=== PATIENT | male | born 1950 | race Caucasian/White ===

== ENCOUNTER 2016-08-22 12:34 | Outpatient (CLI) | payer MEDICARE | END 2016-08-22 12:35 | disposition home or self-care (01) | DX: N20.0 Calculus of kidney (principal) ==

== ENCOUNTER 2016-09-10 13:08 | Outpatient (CLI) | payer MEDICARE | END 2016-09-10 13:09 | disposition short-term general hospital (02) | LOC: EMS 13:08 | PROVIDERS: ATTEND Surgery | DX: R10.32 Left lower quadrant pain (principal) | CPT/HCPCS: A0170; A0425; A0427 ==

== ENCOUNTER 2016-12-21 19:24 | Emergency (ER) | payer MEDICARE ==
[2016-12-21 19:32] VITALS: BP 121/78
[2016-12-21] MEDS ORDERED: BUFFERED LIDOCAINE 10 ML SYRINGE ONE (19:43)
--- NOTE | 2016-12-21 19:47 | ED Physician Documentation ---
PD HPI UPPER EXT INJURY - Stated complaint Stated Complaint: Left POINTER LAC - Chief complaint Chief Complaint: Laceration - History obtained from History obtained from: Patient - History of Present Illness Location: Other (Right-handed gentleman who is up-to-date on tetanus cut the tip of his left index finger just prior to arrival while cutting something with a knife at home.) Review of Systems Constitutional: denies: Fever, Chills GI: reports: Reviewed and negative Skin: reports: Reviewed and negative PD PAST MEDICAL HISTORY - Past Medical History Cardiovascular: High cholesterol, Deep vein thrombosis Endocrine/Autoimmune: HyPOthyroidism : Kidney stones - Past Surgical History Past Surgical History: Yes General: Hiatal hernia repair - Present Medications Home Medications: Ambulatory Orders Medication Instructions Recorded Confirmed Warfarin [Coumadin] 6 mg PO DAILY 08/18/14 06/25/16 Citalopram [CeleXA] 10 mg PO DAILY 10/30/14 12/21/16 Cranberry Conc/Ascorbic Acid 1 each PO DAILY 10/30/14 12/21/16 [Cranberry Plus Vitamin C Sftgl] Ezetimibe/Simvastatin [Vytorin 1 tab PO DAILY 10/30/14 12/21/16 10-40 mg Tablet] Levothyroxine [Synthroid] 50 mcg PO DAILY 10/30/14 12/21/16 Multivit-Min/FA/Lycopen/Lutein 1 each PO DAILY 10/30/14 06/25/16 [Centrum Silver Tablet] Hydrochlorothiazide 25 mg PO DAILY 08/08/15 12/21/16 Tamsulosin HCl [Flomax] 0.4 mg PO DAILY 12/21/16 12/21/16 - Allergies Allergies/Adverse Reactions: Allergies Allergy/AdvReac Type Severity Reaction Status Date / Time morphine AdvReac Nausea Verified 09/20/15 16:49 - Social History Does the pt smoke?: No Smoking Status: Never smoker Does the pt drink ETOH?: No Does the pt have substance abuse?: No - Immunizations Immunizations are current?: Yes PD ED PE NORMAL - Vitals Vital signs reviewed: Yes - General General: Alert and oriented X 3, No acute distress - Extremities Extremities: Other (On the pulp of the left index finger there is a less than 1 cm laceration which is actively bleeding, no tenderness or limited range of motion.) - Neuro Neuro: Alert and oriented X 3, Normal speech - Psych Psych: Normal mood, Normal affect Results - Vitals Vitals: Vital Signs - 24 hr 12/21/16 19:30 Temperature 37.1 C Heart Rate 97 Respiratory 18 Rate Blood Pressure 121/78 O2 Saturation 96 Oxygen O2 Source Room air Procedures - Laceration (location) Left 2nd finger Length in cm: 1 Wound type: Linear Neurovascular status: Sensory intact, Motor intact, Vascular intact Anesthesia: Lidocaine 1%, With bicarb (digital block with excellent anesthesia) Wound Preparation: Chlorhexadine, Irrigated copiously NS Skin layer closure: Nylon, Interrupted, Size #-0 - enter number (4-0), Sutures - enter # (3) Other: Tetanus UTD Complexity: Simple Departure - Departure Disposition: 01 Home, Self Care Clinical Impression: Laceration Condition: Good Record reviewed to determine appropriate education?: Yes Instructions: ED Laceration Hand Comments: Come back for any signs of infection which would include: Redness, swelling, drainage, increased pain, or fevers. Follow-up with your physician in 10-14 days for suture removal.
== END 2016-12-21 20:18 | disposition home or self-care (01) ==
LOC: ED 19:24
DX: S61.211A Laceration without foreign body of left index finger without damage to nail, initial encounter (principal); W26.0XXA Contact with knife, initial encounter; Y92.019 Unspecified place in single-family (private) house as the place of occurrence of the external cause; E78.00 Pure hypercholesterolemia, unspecified; E03.9 Hypothyroidism, unspecified; Z86.718 Personal history of other venous thrombosis and embolism; Z79.01 Long term (current) use of anticoagulants
CPT/HCPCS: 12001; 99282; 99283

== ENCOUNTER 2017-01-15 06:33 | Outpatient (CLI) | payer MEDICARE | END 2017-01-15 06:34 | disposition critical access hospital (66) | LOC: EMS 06:33 | PROVIDERS: ATTEND Surgery | DX: R10.9 Unspecified abdominal pain (principal); R39.89 Other symptoms and signs involving the genitourinary system; R11.2 Nausea with vomiting, unspecified | CPT/HCPCS: A0425; A0427 ==

== ENCOUNTER 2017-01-15 06:56 | Emergency (ER) | payer MEDICARE ==
[2017-01-15] MEDS ORDERED: ONDANSETRON 4 MG/2 ML VIAL IVP STA ×2 (07:20→08:35)
[2017-01-15] MEDS ORDERED: SODIUM CHLORIDE 0.9% 1,000 ML IV ONE ×2 (07:20→08:35)
[2017-01-15] MEDS ORDERED: KETOROLAC 60 MG/2 ML VIAL IVP STA (07:20)
[2017-01-15] MEDS ORDERED: HYDROmorphone 1 MG/ML SYRINGE IVP STA ×2 (07:20→08:35)
--- NOTE | 2017-01-15 07:35 | ED Physician Documentation ---
PD HPI ABD PAIN - Stated complaint Stated Complaint: KIDNEY STONE - Chief complaint Chief Complaint: Abd Pain - History obtained from History obtained from: Patient, EMS - History of Present Illness Timing - onset: How many hours ago (4) Timing - details: Still present Pain level max: 9 Pain level now: 3 Quality: Pain Location: LLQ Radiation: Left flank Associated symptoms: Vomiting, Dysuria. No: Fever Similar symptoms before: Diagnosis (Long history of kidney stones.) Recently seen: Surgery (11 days S/P lazer therapy for kidney stone, with ureteral stent placement. Stent was removed yesterday.) - Treatment prior to arrival Treatment prior to arrival: Medics administered Fentanyl officer captain. - Additional information Additional information: The patient is a 66-year-old male with a long history of kidney stones, who arrives via ambulance with left flank pain radiating to his left testicle. His pain this time started about 4 hours prior to arrival. He has had associated vomiting. He denies fever. He does report discomfort with urination, which he thinks is related to undergoing removal of ureteral stent yesterday. He underwent urologic procedure 11 days ago, with laser therapy for a left ureteral stone. A stent was placed at that time, and it was removed yesterday. Medics administered fentanyl, and the patient's pain at the time of arrival in the emergency department is rated at about a 2 out of 10 in severity, much improved. Past medical history is significant for left lower extremity DVT, for which he takes Coumadin. Review of Systems Constitutional: denies: Fever Nose: denies: Congestion Cardiac: denies: Chest pain / pressure Respiratory: denies: Dyspnea, Cough GI: reports: Abdominal Pain, Nausea, Vomiting. denies: Diarrhea : reports: Dysuria. denies: Hematuria Skin: denies: Rash Musculoskeletal: reports: Back pain (left flank pain) Neurologic: denies: Focal weakness, Numbness, Headache PD PAST MEDICAL HISTORY - Past Medical History Cardiovascular: High cholesterol, Deep vein thrombosis Endocrine/Autoimmune: HyPOthyroidism : Kidney stones - Past Surgical History Past Surgical History: Yes General: Hiatal hernia repair - Present Medications Home Medications: Ambulatory Orders Medication Instructions Recorded Confirmed Warfarin [Coumadin] 6 mg PO DAILY 08/18/14 06/25/16 Citalopram [CeleXA] 10 mg PO DAILY 10/30/14 12/21/16 Cranberry Conc/Ascorbic Acid 1 each PO DAILY 10/30/14 12/21/16 [Cranberry Plus Vitamin C [facility]] Ezetimibe/Simvastatin [Vytorin 1 tab PO DAILY 10/30/14 12/21/16 10-40 mg Tablet] Levothyroxine [Synthroid] 50 mcg PO DAILY 10/30/14 12/21/16 Multivit-Min/FA/Lycopen/Lutein 1 each PO DAILY 10/30/14 06/25/16 [Centrum Silver Tablet] Hydrochlorothiazide 25 mg PO DAILY 08/08/15 12/21/16 Tamsulosin HCl [Flomax] 0.4 mg PO DAILY 12/21/16 12/21/16 - Allergies Allergies/Adverse Reactions: Allergies Allergy/AdvReac Type Severity Reaction Status Date / Time morphine AdvReac Nausea Verified 01/15/17 07:21 - Social History Does the pt smoke?: No Smoking Status: Never smoker Does the pt drink ETOH?: No Does the pt have substance abuse?: No - Immunizations Immunizations are current?: Yes PD ED PE NORMAL - Vitals Vital signs reviewed: Yes (normal) - General General: Alert and oriented X 3, Well developed/nourished - HEENT HEENT: Atraumatic - Neck Neck: No adenopathy, No JVD - Cardiac Cardiac: RRR, No murmur - Respiratory Respiratory: No respiratory distress, Clear bilaterally - Abdomen Abdomen: Normal bowel sounds, Soft, No organomegaly, Other (Tenderness to palpation in LLQ, without rebound or guarding.) - Back Back: Other (Left CVA tenderness to percussion.) - Derm Derm: No rash - Neuro Neuro: Alert and oriented X 3, No motor deficit, Normal speech Results - Vitals Vitals: Vital Signs - 24 hr 01/15/17 07:00 Temperature 36.2 C L Heart Rate 82 Respiratory 19 Rate Blood Pressure 109/71 O2 Saturation 99 Oxygen O2 Source Room air - Labs Labs: Laboratory Tests 01/15/17 01/15/17 07:33 07:34 PT 13.5 H INR 1.2 Urine Color YELLOW Urine Clarity CLEAR Urine pH 5.5 Ur Specific [place] >=1.030 H Urine Protein TRACE Urine Glucose (UA) NEGATIVE Urine Ketones NEGATIVE Urine Occult Blood SMALL H Urine Nitrite NEGATIVE Urine Bilirubin NEGATIVE Urine Urobilinogen 0.2 (NORMAL) Ur Leukocyte Esterase NEGATIVE Urine RBC 11-25 H Urine WBC 4-5 Ur Squamous Epith Cells RARE Squamous Urine Crystals 3-5 Calcium Oxalate Urine Bacteria None Seen Urine Mucus Moderate Strands Ur Microscopic Review INDICATED Urine Culture Comments NOT INDICATED - Rads (name of study) CT abd/pelvis w/o Radiology: Prelim report reviewed, EMP read contemporaneously, See rad report ( 1. 2 benign right-sided pulmonary nodules. 2. Bilateral nephrolithiasis. 3. Moderate left hydronephrosis. There is no obvious obstructing stone, but the patient may have recently passed multiple stones into the bladder.) PD MEDICAL DECISION MAKING - ED course Complexity details: reviewed old records, reviewed results, re-evaluated patient , considered differential, d/w patient ED course: The patient's presentation is most consistent with left renal colic, with recent ureteral stent removal yesterday. CT scan of the abdomen and pelvis reveals no current ureteral stone, but there is evidence of recent passage of ureteral stone. There is no evidence of pyelonephritis. Treatment in the emergency department included administration of normal saline 2 L IV, ketorolac 30 mg IV, Dilaudid 1 mg IV, and Zofran 4 mg IV. The patient's symptoms resolved with the above treatment. I discussed with him the expected course of symptoms, symptomatic treatment and outpatient follow-up, as well as potentially worrisome signs or symptoms that should prompt reevaluation in the emergency department. He already has pain medication, antinausea medication, and Flomax that was previously prescribed by his urologist. Departure - Departure Disposition: 01 Home, Self Care Clinical Impression: Renal colic on left side Instructions: ED Stone Renal W Colic Follow-Up: Kd Todd CM, MD [Physician No Access] - Comments: Drink plenty of fluids. Usual previously prescribed pain medication and antinausea medication as needed. Follow up with your urologist as planned. Return to the emergency department if you develop increasing abdominal pain, persistent vomiting, fever, or otherwise worsening symptoms.
[2017-01-15] MEDS ORDERED: KETOROLAC 30 MG/ML VIAL ONE (07:40)
[2017-01-15] MEDS ORDERED: SODIUM CHLORIDE FLUSH 0.9% 10 ML SYRINGE IVP ONE (07:40)
[2017-01-15 07:46] LABS: INR 1.2 (0.8-1.2); PT - PROTHROMBIN TIME 13.5 secs (9.9-12.6)
[2017-01-15 08:03] LABS: BILIRUBIN,URINE NEGATIVE (NEGATIVE); PH,URINE 5.5 PH (5.0-7.5)
[2017-01-15 08:15] LABS: UA w/ MICROSCOPIC CHARGE YES; UR CULTURE IF IND NOT INDICATED
[2017-01-15] MEDS ORDERED: HYDROmorphone 1 MG/ML SYRINGE ONE (08:41)
[2017-01-15] MEDS ORDERED: ONDANSETRON 4 MG/2 ML VIAL ONE (08:41)
--- NOTE | 2017-01-15 09:10 | CT Preliminary Report ---
Exam: CT Abdomen/Pelvis W/O IMPRESSION: 1. 2 benign right sided pulmonary nodules. 2. Bilateral nephrolithiasis. 3. Moderate left hydronephrosis. There is no obvious obstructing stone, but the patient may have rece ntly passed multiple stones into the bladder. [facility] SITE ID: [id number]
--- NOTE | 2017-01-15 09:13 | CT Report ---
EXAM: CT ABDOMEN AND PELVIS (CT KUB) EXAM DATE: 01/15/2017 08:40 AM. CLINICAL HISTORY: Acute left flank pain. COMPARISONS: 09/20/2015, 05/18/2013. TECHNIQUE: Routine axial helical CT imaging was performed through the abdomen and pelvis without IV c ontrast. Reconstructions: Coronal and sagittal. In accordance with CT protocol optimization, one or more of the following dose reduction techniques w ere utilized for this exam: automated exposure control, adjustment of mA and/or KV based on patient s ize, or use of iterative reconstructive technique. FINDINGS: Lung Bases: There are 2 pulmonary nodules in the right lower middle lobe (series 3, images 2 and 3. The largest measures 6 mm. These have been stable since 05/18/2013 and are thus benign. Right Kidney/Ureter: The patient is a nonobstructive 1.0 x 0.2 cm calcification in the right kidney. Left Kidney/Ureter: Moderate left hydronephrosis is present. There are 3 nonobstructive calcification s within the left kidney with the largest measuring 6 mm. Stranding is seen around the left kidney an d ureter. Other Solid Organs: Noncontrast images of the solid organs are grossly unremarkable. Gallbladder/Bile Ducts: The patient has had a cholecystectomy. Peritoneal Cavity: No free fluid, free air or yessy adenopathy. Bowel is grossly unremarkable. Pelvic Organs: The patient has a confluence of stones in the right posterior bladder which measure to gether 1.4 x 0.6 cm. Presumably these are not obstructing the right ureterovesicular junction as ther e is no right hydronephrosis. Vasculature: Arterial calcifications indicate atherosclerosis. Other: There is degenerative change in the visualized spine. IMPRESSION: 1. 2 benign right sided pulmonary nodules. 2. Bilateral nephrolithiasis. 3. Moderate left hydronephrosis. There is no obvious obstructing stone, but the patient may have rece ntly passed multiple stones into the bladder. [facility] Referring Provider Line: [phone] SITE ID: [id number]
[2017-01-15 09:59] VITALS: BP 108/68
== END 2017-01-15 09:59 | disposition home or self-care (01) ==
LOC: EDUNIT# → ED 06:56
DX: N23 Unspecified renal colic (principal); Z87.442 Personal history of urinary calculi; R91.8 Other nonspecific abnormal finding of lung field; Z98.890 Other specified postprocedural states; E78.00 Pure hypercholesterolemia, unspecified; Z86.718 Personal history of other venous thrombosis and embolism; Z79.01 Long term (current) use of anticoagulants; E03.9 Hypothyroidism, unspecified
CPT/HCPCS: 36415; 74176; 81001; 85610; 96361; 96374; 96375; 99284; J1170; 81003; 87086

== ENCOUNTER 2017-07-06 14:34 | Outpatient (CLI) | payer MEDICARE ==
--- NOTE | 2017-07-07 09:52 | XRAY Report ---
ABDOMEN X-RAY: 07/06/2017 COMPARISON: Comparison study abdomen and pelvis CT 01/15/2017. INDICATION: Bladder stone. TECHNIQUE: One view of the abdomen. FINDINGS: Several calcifications overlie the bladder with the largest measuring 1.0 cm, likely bladder stones. There are several bilateral lower pole renal stones that measure on the order of 4 mm. Nonobstructive bowel gas pattern. IMPRESSION: 1. BILATERAL RENAL STONES. 2. LIKELY BLADDER STONES MEASURE UP TO 1.0 CM. TD: 07/07/2017 09:51 [facility]
== END 2017-07-06 14:35 | disposition home or self-care (01) ==
LOC: DI 14:34
PROVIDERS: ATTEND Urology
DX: N21.0 Calculus in bladder (principal); N20.0 Calculus of kidney
CPT/HCPCS: 74018

== ENCOUNTER 2017-08-20 17:52 | Outpatient (CLI) | payer MEDICARE | END 2017-08-20 17:53 | disposition critical access hospital (66) | LOC: EMS 17:52 | PROVIDERS: ATTEND Surgery | DX: R10.30 Lower abdominal pain, unspecified (principal) | CPT/HCPCS: A0425; A0427 ==

== ENCOUNTER 2017-08-20 18:17 | Emergency (ER) | payer MEDICARE ==
[2017-08-20 19:11] LABS: BASOPHILS # (AUTO) 0.1 10^3/uL (0.0-0.1); BASOPHILS % (AUTO) 0.7 %; EOSINOPHILS % (AUTO) 0.2 %; HGB - HEMOGLOBIN 14.6 g/dL (14.0-18.0); LYMPHOCYTES # (AUTO) 0.9 10^3/uL (1.5-3.5); LYMPHOCYTES % (AUTO) 9.4 %; MEAN CORPUSCULAR HEMOGLOBIN 29.9 pg (27.0-31.0); MEAN CORPUSCULAR HGB CONC 33.9 g/dL (32.0-36.0); MEAN PLATELET VOLUME 8.2 fL (7.4-11.4); MONOCYTES # (AUTO) 0.3 10^3/uL (0.0-1.0); MONOCYTES % (AUTO) 2.7 %; NEUTROPHILS # (AUTO) 8.3 10^3/uL (1.5-6.6); PLT - PLATELET COUNT 147 10^3/uL (130-450); RED CELL DISTRIBUTION WIDTH 14.7 % (12.0-15.0); WHITE BLOOD COUNT 9.6 x10^3/uL (4.8-10.8)
[2017-08-20] MEDS ORDERED: SODIUM CHLORIDE 0.9% 1,000 ML IV ONE (19:12)
[2017-08-20] MEDS ORDERED: HYDROmorphone 2 MG/ML VIAL IM STA ×2 (19:12→21:11)
[2017-08-20] MEDS ORDERED: ONDANSETRON 4 MG/2 ML VIAL IVP STA (19:12)
[2017-08-20] MEDS ORDERED: KETOROLAC 60 MG/2 ML VIAL IVP STA (19:13)
--- NOTE | 2017-08-20 19:16 | ED Physician Documentation ---
PD HPI ABD PAIN - Stated complaint Stated Complaint: ABD PAIN - Chief complaint Chief Complaint: Abd Pain - History obtained from History obtained from: Patient - History of Present Illness Timing - onset: Today (This is a 67-year-old gentleman with history of renal and bladder stones who presents with sudden onset severe suprapubic pain radiating to the left flank starting earlier today with vomiting. His urologist is Dr. Todd in [place]. He is anticoagulated for factor V Leiden deficiency.) Review of Systems Ten Systems: 10 systems reviewed and negative Constitutional: reports: Sweats. denies: Fever, Chills Throat: denies: Dental pain / toothache, Sore throat Cardiac: denies: Chest pain / pressure, Palpitations Respiratory: denies: Dyspnea, Cough PD PAST MEDICAL HISTORY - Past Medical History Past Medical History: Yes Cardiovascular: High cholesterol, Deep vein thrombosis Respiratory: None Endocrine/Autoimmune: HyPOthyroidism : Kidney stones Derm: None - Past Surgical History Past Surgical History: Yes General: Hiatal hernia repair - Present Medications Home Medications: Ambulatory Orders Medication Instructions Recorded Confirmed Citalopram [CeleXA] 10 mg PO DAILY 10/30/14 06/03/17 Cranberry Conc/Ascorbic Acid 1 each PO DAILY 10/30/14 06/03/17 [Cranberry Plus Vitamin C [facility]] Multivit-Min/FA/Lycopen/Lutein 1 each PO DAILY 10/30/14 06/03/17 [Centrum Silver Tablet] Hydrochlorothiazide 25 mg PO DAILY 08/08/15 06/03/17 Tamsulosin HCl [Flomax] 0.4 mg PO DAILY 12/21/16 06/03/17 Atorvastatin [Lipitor] 40 mg ORAL DAILY 02/04/17 06/03/17 Cholecalciferol [Vitamin D3] 5,000 unit PO DAILY 02/04/17 06/03/17 Levothyroxine [Synthroid] 1 tab ORAL DAILY 02/04/17 06/03/17 Warfarin Sodium [Coumadin] 8 mg PO DAILY 02/19/17 06/03/17 Ondansetron HCl [Zofran] 4 mg PO Q6H PRN #10 tablet 08/20/17 Oxycodone HCl/Acetaminophen 1 - 2 tab PO Q4H PRN #15 tablet 08/20/17 [Percocet 5-325 mg Tablet] - Allergies Allergies/Adverse Reactions: Allergies Allergy/AdvReac Type Severity Reaction Status Date / Time morphine AdvReac Nausea Verified 01/15/17 07:21 - Social History Does the pt smoke?: No Smoking Status: Never smoker Does the pt drink ETOH?: No Does the pt have substance abuse?: No - Immunizations Immunizations are current?: Yes - POLST Patient has POLST: No PD ED PE NORMAL - Vitals Vital signs reviewed: Yes - General General: Alert and oriented X 3, Other (He looks uncomfortable and is restless) - HEENT HEENT: PERRL, EOMI - Neck Neck: Supple, no meningeal sign, No bony TTP - Cardiac Cardiac: RRR, No murmur - Respiratory Respiratory: No respiratory distress, Clear bilaterally - Abdomen Abdomen: Normal bowel sounds, Soft, Non tender - Back Back: No CVA TTP - Extremities Extremities: No edema, No calf tenderness / cord - Neuro Neuro: Alert and oriented X 3, Normal speech - Psych Psych: Normal mood, Normal affect Results - Vitals Vitals: Vital Signs - 24 hr 08/20/17 08/20/17 08/20/17 18:22 19:50 20:25 Temperature Heart Rate 70 66 83 Respiratory 18 22 22 Rate Blood Pressure 130/111 H 149/97 H 134/76 H O2 Saturation 98 95 95 08/20/17 08/20/17 21:03 21:36 Temperature 37.3 C Heart Rate 90 Respiratory 19 Rate Blood Pressure 143/87 H O2 Saturation 97 Oxygen O2 Source Nasal cannula Oxygen Flow Rate 2 - Labs Labs: Laboratory Tests 08/20/17 08/20/17 08/20/17 19:03 19:03 19:03 WBC 9.6 RBC 4.90 Hgb 14.6 Hct 43.1 MCV 88.0 MCH 29.9 MCHC 33.9 RDW 14.7 Plt Count 147 MPV 8.2 Neut # 8.3 H Lymph # 0.9 L [place] # 0.3 Eos # 0.0 Baso # 0.1 Absolute Nucleated RBC 0.01 Nucleated RBC % 0.1 PT 28.6 H INR 2.6 H Sodium 136 Potassium 4.0 Chloride 104 Carbon Dioxide 23 Anion Gap 9.0 BUN 16 Creatinine 1.2 Estimated GFR (MDRD) 60 L Glucose 131 H Calcium 9.0 Total Bilirubin 0.5 AST 30 ALT 44 Alkaline Phosphatase 100 Total Protein 7.3 Albumin 4.3 Globulin 3.0 Albumin/Globulin Ratio 1.4 Lipase 21 L Urine Color Urine Clarity Urine pH Ur Specific [place] Urine Protein Urine Glucose (UA) Urine Ketones Urine Occult Blood Urine Nitrite Urine Bilirubin Urine Urobilinogen Ur Leukocyte Esterase Urine RBC Urine WBC Ur Squamous Epith Cells Urine Crystals Urine Bacteria Ur Microscopic Review Urine Culture Comments 08/20/17 19:22 WBC RBC Hgb Hct MCV MCH MCHC RDW Plt Count MPV Neut # Lymph # [place] # Eos # Baso # Absolute Nucleated RBC Nucleated RBC % PT INR Sodium Potassium Chloride Carbon Dioxide Anion Gap BUN Creatinine Estimated GFR (MDRD) Glucose Calcium Total Bilirubin AST ALT Alkaline Phosphatase Total Protein Albumin Globulin Albumin/Globulin Ratio Lipase Urine Color YELLOW Urine Clarity CLEAR Urine pH 6.0 Ur Specific [place] 1.025 Urine Protein TRACE Urine Glucose (UA) NEGATIVE Urine Ketones 15 H Urine Occult Blood LARGE H Urine Nitrite NEGATIVE Urine Bilirubin NEGATIVE Urine Urobilinogen 0.2 (NORMAL) Ur Leukocyte Esterase NEGATIVE Urine RBC 11-25 H Urine WBC 0-3 Ur Squamous Epith Cells FEW Squamous Urine Crystals 3-5 Calcium Oxalate Urine Bacteria None Seen Ur Microscopic Review INDICATED Urine Culture Comments NOT INDICATED PD MEDICAL DECISION MAKING - ED course ED course: 67-year-old gentleman chronically anticoagulated presents with what seems like renal colic and is found to have a large proximal ureteral stone with hydronephrosis on the left. Case discussed by phone with Dr. Duane Palumbo, operations architect for his urologist in [place] who recommended no changes to his anticoagulation status at this point a trial of outpatient management. After divided doses of pain medication his pain was down significantly and he was comfortable. Passed an oral challenge. Departure - Departure Disposition: 01 Home, Self Care Clinical Impression: Renal colic on left side, Adequate anticoagulation on anticoagulant therapy Condition: Stable Record reviewed to determine appropriate education?: Yes Instructions: ED Stone Renal W Colic Prescriptions: Ondansetron HCl [Zofran] 4 mg PO Q6H PRN #10 tablet PRN Reason: Nausea / Vomiting Oxycodone HCl/Acetaminophen [Percocet 5-325 mg Tablet] 1 - 2 tab PO Q4H PRN #15 tablet PRN Reason: Pain Comments: Call your urologist tomorrow to schedule a follow-up appointment and to discuss whether or not you should stop your anticoagulation or substitute with Lovenox in the interim. Return if worsening or if pain is uncontrolled. Do not drink or drive while taking narcotic pain medication. Note that many narcotic pain relievers also contain Tylenol/acetaminophen. Please ensure that your total dose of acetaminophen from all sources does not exceed 3 g (3000 mg) per day. You may get constipated while on this medication. Take a stool softener such as Colace twice a day while you are on it. Also add an [id number] laxative such as senna or MiraLAX on any day that you do not have a bowel movement. If you received a narcotic pain medication or sedative while in the emergency department, do not drive for the next 24 hours.
[2017-08-20 19:23] LABS: ALBUMIN 4.3 g/dL (3.2-5.5); ALBUMIN/GLOBULIN RATIO 1.4 (1.0-2.2); BILIRUBIN,TOTAL 0.5 mg/dL (0.2-1.0); CREATININE 1.2 mg/dL (0.6-1.2); TOTAL PROTEIN 7.3 g/dL (6.7-8.2)
[2017-08-20 19:25] LABS: INR 2.6 (0.8-1.2); PT - PROTHROMBIN TIME 28.6 secs (9.9-12.6)
[2017-08-20 19:38] LABS: BILIRUBIN,URINE NEGATIVE (NEGATIVE); GLUCOSE, URINE (UA) NEGATIVE (NEGATIVE); KETONES,URINE (UA) 15 mg/dL (NEGATIVE); LEUKOCYTE ESTERASE, URINE NEGATIVE (NEGATIVE); NITRITE,URINE NEGATIVE (NEGATIVE); OCCULT BLOOD,URINE LARGE (NEGATIVE); PROTEIN,URINE TRACE mg/dL (NEGATIVE); UROBILINOGEN,URINE 0.2 (NORMAL) E.U./dL (NORMAL)
[2017-08-20 19:45] LABS: CLARITY,URINE CLEAR (CLEAR)
[2017-08-20 19:53] LABS: BACTERIA,URINE None Seen /HPF (None Seen); SQUAMOUS EPITHELIAL CELL,UR FEW Squamous (<= Few)
[2017-08-20 19:54] LABS: CRYSTALS,URINE 3-5 Calcium Oxalate /LPF
--- NOTE | 2017-08-20 21:37 | CT Preliminary Report ---
Exam: CT ABDOMEN/PELVIS W/O IMPRESSION: 1. Chronic lung disease. 2. Cholelithiasis. 3. Bilateral nephrolithiasis. 4. 5 mm proximal left ureteral stone causing moderate to marked obstruction. 5. Numerous bladder calculi. 6. Colonic diverticulosis. [facility] SITE ID: [id number]
--- NOTE | 2017-08-20 21:41 | CT Report ---
EXAM: CT ABDOMEN AND PELVIS EXAM DATE: 08/20/2017 08:53 PM. CLINICAL HISTORY: History of kidney stones. Patient presents now with left flank pain, nausea and vom iting. COMPARISONS: 01/15/2017. TECHNIQUE: Routine helical CT imaging was performed through the abdomen and pelvis. IV contrast: None . Enteric contrast: No. Reconstructions: Coronal and sagittal. In accordance with CT protocol optimization, one or more of the following dose reduction techniques w ere utilized for this exam: automated exposure control, adjustment of mA and/or KV based on patient s ize, or use of iterative reconstructive technique. FINDINGS: Lung Bases: Chronic lung disease. Liver: Normal. No masses. Gallbladder/Bile Ducts: No prior surgery. Gallbladder is normal caliber with several 5 mm stones at t he gallbladder neck. No biliary duct dilatation. Spleen: Normal. Pancreas: Normal. Adrenal Glands: Normal. Kidneys: 2 x 10 mm stone inferior right renal calyx. Right kidney and right ureter otherwise normal. Multiple 9 mm and smaller left renal stones. Increasing degree of hydronephrosis now moderate to ambika ed. New marked left perirenal and peripelvic edema. 4 x 5 mm stone proximal left ureter at the level of the L3-L4 disk. Inferior to this stone, left ureter is tiny without additional stones. Peritoneal Cavity/Bowel: Diverticula off the colon. No free fluid, free air or adenopathy. No masses or acute inflammatory process. The appendix is well visualized and normal. Pelvic Organs: Multiple 1 cm and smaller urinary bladder stones; overall, stone load slightly greater than previously. No urinary bladder wall thickening. Prostate measures 4 cm. No free pelvic fluid. Vasculature: No aneurysms or other significant abnormality. Bones: No significant abnormality. Other: None. IMPRESSION: 1. Chronic lung disease. 2. Cholelithiasis. 3. Bilateral nephrolithiasis. 4. 5 mm proximal left ureteral stone causing moderate to marked obstruction. 5. Numerous bladder calculi. 6. Colonic diverticulosis. [facility] Referring Provider Line: [phone] SITE ID: [id number]
[2017-08-20] MEDS ORDERED: oxyCODONE/ACET 5/325 Prepack 4 PO STA (21:53)
[2017-08-20] MEDS ORDERED: ONDANSETRON ODT 4 MG Prepack 2 TL STA (21:56)
[2017-08-20 22:10] VITALS: BP 111/67
== END 2017-08-20 22:11 | disposition home or self-care (01) ==
LOC: EDUNIT# → ED 18:17
DX: N13.2 Hydronephrosis with renal and ureteral calculous obstruction (principal); E03.9 Hypothyroidism, unspecified; E78.00 Pure hypercholesterolemia, unspecified; Z86.718 Personal history of other venous thrombosis and embolism; Z79.01 Long term (current) use of anticoagulants
CPT/HCPCS: 36415; 74176; 80053; 81001; 83690; 85025; 85610; 96361; 96372; 96374; 96375; 99284; J1170; 81003; 87086

== ENCOUNTER 2017-08-28 13:47 | Outpatient (CLI) | payer MEDICARE ==
--- NOTE | 2017-08-28 18:10 | XRAY Report ---
SUPINE ABDOMEN: 08/28/2017 CLINICAL INDICATION: Kidney stone followup. COMPARISON: CT 08/20/2012. FINDINGS: Supine views of the abdomen demonstrate a normal bowel gas pattern. Bilateral nephrolithiasis is stable. Left proximal ureteric stone is stable, at the level of the L3-4 disk. Bladder calculi are stable. Mild degenerative changes are noted in the lumbar spine. IMPRESSION: STABLE NEPHROLITHIASIS, LEFT PROXIMAL URETERIC STONE, AND BLADDER CALCULI. NO BOWEL OBSTRUCTION. TD: 08/28/2017 18:09
== END 2017-08-28 13:48 | disposition home or self-care (01) ==
LOC: DI 13:47
PROVIDERS: ATTEND Urology
DX: N20.2 Calculus of kidney with calculus of ureter (principal); N21.0 Calculus in bladder
CPT/HCPCS: 74018

== ENCOUNTER 2017-10-13 12:10 | Outpatient (CLI) | payer MEDICARE ==
--- NOTE | 2017-10-13 16:00 | XRAY Report ---
Procedure Date: 10/13/2017 Accession Number: [id number] / [id number] Procedure: XR - Abdomen 1 View X-Ray CPT Code: 12745 FULL RESULT: EXAM: Abdomen 1 View X-Ray DATE: 10/13/2017 1:20 PM CLINICAL HISTORY: BLADDER and renal stone follow-up TECHNIQUE: One view COMPARISON: 08/28/2017 FINDINGS: Left renal and ureteral calculi no longer seen. Bladder calculi no longer seen. Question residual right lower pole calculus. Gallstones remain. Nonspecific bowel gas pattern. IMPRESSION: Left renal and ureteral calculi and left bladder calculi no longer seen. Residual gallstones are present. Question residual right nephrolithiasis.
== END 2017-10-13 12:11 | disposition home or self-care (01) ==
LOC: DI 12:10
PROVIDERS: ATTEND Urology
DX: K80.80 Other cholelithiasis without obstruction (principal)
CPT/HCPCS: 74018

== ENCOUNTER 2018-03-25 12:58 | Outpatient (CLI) | payer MEDICARE | END 2018-03-25 12:59 | disposition home or self-care (01) | LOC: RT 12:58 | PROVIDERS: ATTEND Internal Medicine Gastroenterology | DX: E78.5 Hyperlipidemia, unspecified (principal); E66.9 Obesity, unspecified; N20.0 Calculus of kidney; Z12.11 Encounter for screening for malignant neoplasm of colon; D68.51 Activated protein C resistance; F32.9 Major depressive disorder, single episode, unspecified; N40.0 Benign prostatic hyperplasia without lower urinary tract symptoms; F41.9 Anxiety disorder, unspecified; E03.9 Hypothyroidism, unspecified; M75.100 Unspecified rotator cuff tear or rupture of unspecified shoulder, not specified as traumatic; M75.41 Impingement syndrome of right shoulder | CPT/HCPCS: 36415; 80053; 85025; 93005 ==

== ENCOUNTER 2018-04-01 12:40 | Day surgery (SDC) | payer MEDICARE ==
[2018-04-01] MEDS ORDERED: LACTATED RINGERS 1,000 ML IV ONE (13:10)
[2018-04-01] MEDS ORDERED: MIDAZOLAM 2 MG/2 ML VIAL IVP ONE (14:00)
[2018-04-01] MEDS ORDERED: fentaNYL 250 MCG/5 ML VIAL IVP ONE (14:00)
[2018-04-01 16:20] VITALS: BP 125/65
== END 2018-04-01 12:41 | disposition home or self-care (01) ==
LOC: SDS 12:40
PROVIDERS: ATTEND Internal Medicine Gastroenterology
PROC: 0DBN8ZZ Excision of Sigmoid Colon, Via Natural or Artificial Opening Endoscopic (ICD-10-PCS; 2018-04-01)
PROC: 0DBP8ZZ Excision of Rectum, Via Natural or Artificial Opening Endoscopic (ICD-10-PCS; 2018-04-01)
PROC: 0DBM8ZZ Excision of Descending Colon, Via Natural or Artificial Opening Endoscopic (ICD-10-PCS; principal; 2018-04-01 14:00)
DX: Z12.11 Encounter for screening for malignant neoplasm of colon (principal); D12.4 Benign neoplasm of descending colon; D12.8 Benign neoplasm of rectum; K63.5 Polyp of colon; D68.51 Activated protein C resistance; E66.9 Obesity, unspecified; Z79.01 Long term (current) use of anticoagulants; Z87.891 Personal history of nicotine dependence; Z68.32 Body mass index [BMI] 32.0-32.9, adult
CPT/HCPCS: 45380; 45385; 85610; J3010; J7120

== ENCOUNTER 2018-07-22 13:08 | Day surgery (SDC) | payer MEDICARE ==
[2018-07-22] MEDS ORDERED: LACTATED RINGERS 1,000 ML IV ONE ×2 (13:35→14:27)
[2018-07-22 14:12] LABS: INR 2.2 (0.8-1.2)
[2018-07-22 14:19] LABS: PT - PROTHROMBIN TIME 24.5 secs (9.9-12.6)
[2018-07-22 15:58] VITALS: BP 117/69
== END 2018-07-22 13:09 | disposition home or self-care (01) ==
LOC: SDS 13:08
PROVIDERS: ATTEND Internal Medicine Gastroenterology
PROC: 0DBE8ZZ Excision of Large Intestine, Via Natural or Artificial Opening Endoscopic (ICD-10-PCS; 2018-07-22)
PROC: 0DBN8ZZ Excision of Sigmoid Colon, Via Natural or Artificial Opening Endoscopic (ICD-10-PCS; 2018-07-22)
PROC: 0DBK8ZZ Excision of Ascending Colon, Via Natural or Artificial Opening Endoscopic (ICD-10-PCS; principal; 2018-07-22 14:00)
DX: Z09 Encounter for follow-up examination after completed treatment for conditions other than malignant neoplasm (principal); D12.2 Benign neoplasm of ascending colon; K63.5 Polyp of colon; K62.1 Rectal polyp; Z79.01 Long term (current) use of anticoagulants; D68.51 Activated protein C resistance; K21.9 Gastro-esophageal reflux disease without esophagitis; E03.9 Hypothyroidism, unspecified; E78.5 Hyperlipidemia, unspecified; F32.9 Major depressive disorder, single episode, unspecified; F41.9 Anxiety disorder, unspecified; N40.0 Benign prostatic hyperplasia without lower urinary tract symptoms; E55.9 Vitamin D deficiency, unspecified; Z87.442 Personal history of urinary calculi; R91.1 Solitary pulmonary nodule; E66.9 Obesity, unspecified; Z68.33 Body mass index [BMI] 33.0-33.9, adult; Z87.891 Personal history of nicotine dependence
CPT/HCPCS: 45380; 85610; J7120

== ENCOUNTER 2018-08-13 11:29 | Outpatient (CLI) | payer MEDICARE ==
--- NOTE | 2018-08-13 12:41 | XRAY Report ---
Reason: KIDNEY STONE Procedure Date: 08/13/2018 Accession Number: [id number] / [id number] Procedure: XR - Abdomen 1 View X-Ray CPT Code: 73013 FULL RESULT: EXAM: ABDOMEN RADIOGRAPHY EXAM DATE: 08/13/2018 12:13 PM. CLINICAL HISTORY: History of kidney stones. Postop. COMPARISON: 10/13/2017. TECHNIQUE: 1 view. FINDINGS: Bowel Gas Pattern: Bowel gas pattern is normal. Small volume of stool in the colon. Other: Lung bases are clear. Lower pole right renal calculi again evident, the largest measuring up to 3-4 mm. No definitive left renal calculi. No definitive evidence for ureteral or bladder calculi. Right upper quadrant calcifications again seen which may represent gallstones and remain unchanged. IMPRESSION: 1. Nonobstructing right renal calculi. 2. No calculi are seen in the expected position of the left kidney, ureters or bladder. [facility]
== END 2018-08-13 11:30 | disposition home or self-care (01) ==
LOC: LAB 11:29 → DI 11:30
PROVIDERS: ATTEND Urology
DX: N20.0 Calculus of kidney (principal); N40.1 Benign prostatic hyperplasia with lower urinary tract symptoms; N13.8 Other obstructive and reflux uropathy
CPT/HCPCS: 36415; 74018; 84153

== ENCOUNTER 2018-10-26 13:16 | Emergency (ER) | payer MEDICARE ==
[2018-10-26 13:39] VITALS: BP 121/69
[2018-10-26] MEDS ORDERED: DEXAMETHASONE 10 MG/ML VIAL IM STA (14:48)
[2018-10-26] MEDS ORDERED: KETOROLAC 60 MG/2 ML VIAL IM STA ×2 (14:48→14:49)
--- NOTE | 2018-10-26 14:52 | ED Physician Documentation ---
PD HPI BACK PAIN - Stated complaint Stated Complaint: LT HIP AND LEG - Chief complaint Chief Complaint: Back Pain - History obtained from History obtained from: Patient - History of Present Illness Timing - onset: How many days ago (9) Timing - duration: Days (9) Timing - details: Gradual onset Pain level max: 7 Pain level now: 6 Location: Lower, Left Quality: Pain, Spasm Associated symptoms: No: Fever, Weakness, Numbness, Incontinent of urine, Unable to urinate, Hematuria, Incontinent of stool Improves with: Rest Worsened by: Movement Contributing factors: Other (digging outside) Recently seen: Not recently seen - Additional information Additional information: radiates down the L leg. Review of Systems Constitutional: denies: Fever, Chills GI: denies: Vomiting, Diarrhea : denies: Unable to Void, Incontinent Skin: denies: Rash Musculoskeletal: denies: Neck pain Neurologic: denies: Focal weakness, Numbness PD PAST MEDICAL HISTORY - Past Medical History Past Medical History: No Cardiovascular: High cholesterol, Deep vein thrombosis Respiratory: None Neuro: None Endocrine/Autoimmune: HyPOthyroidism GI: None : Kidney stones HEENT: None Psych: None Musculoskeletal: None Derm: None - Past Surgical History Past Surgical History: Yes General: Hiatal hernia repair - Present Medications Home Medications: Ambulatory Orders Medication Instructions Recorded Confirmed Citalopram [CeleXA] 10 mg PO DAILY 10/30/14 09/01/18 Multivit-Min/FA/Lycopen/Lutein 1 each PO DAILY 10/30/14 09/01/18 [Centrum Silver Tablet] Hydrochlorothiazide 25 mg PO DAILY 08/08/15 09/01/18 Tamsulosin HCl [Flomax] 0.4 mg PO DAILY 12/21/16 09/01/18 Atorvastatin [Lipitor] 40 mg ORAL DAILY 02/04/17 09/01/18 Levothyroxine [Synthroid] 1 tab ORAL DAILY 02/04/17 09/01/18 Warfarin Sodium 7 mg PO DAILY MDD 4 X Week, 03/11/18 09/01/18 T//S/S Warfarin Sodium 8 mg PO DAILY MDD 3 X Week, M/W/F 03/11/18 09/01/18 Cyclobenzaprine [Flexeril] 10 mg PO TID PRN #20 tablet 10/26/18 Hydrocodone/Acetaminophen 1 - 2 each PO Q6H PRN #14 tablet 10/26/18 [Hydrocodon-Acetaminophen 5-325] predniSONE [Deltasone] 10 mg PO [id number] #42 tab 10/26/18 - Allergies Allergies/Adverse Reactions: Allergies Allergy/AdvReac Type Severity Reaction Status Date / Time morphine AdvReac Nausea Verified 10/26/18 13:39 - Social History Does the pt smoke?: No Smoking Status: Never smoker Does the pt drink ETOH?: No Does the pt have substance abuse?: No - Immunizations Immunizations are current?: Yes - POLST Patient has POLST: No PD ED PE NORMAL - Vitals Vital signs reviewed: Yes - General General: Alert and oriented X 3, No acute distress, Well developed/nourished - HEENT HEENT: PERRL, Moist mucous membranes - Neck Neck: Supple, no meningeal sign - Cardiac Cardiac: RRR - Respiratory Respiratory: No respiratory distress, Clear bilaterally - Abdomen Abdomen: Soft, Non tender, Non distended - Back Back: Other (No midline tenderness to palpation. Paraspinal tenderness left lower lumbar. Reproduces pain. Mild spasm.) - Derm Derm: Warm and dry - Extremities Extremities: Other (Normal bilateral lower extremity patellar and ankle jerk reflexes. Normal great toe extension bilaterally. no saddle anesthesia) - Neuro Neuro: Alert and oriented X 3, No motor deficit, No sensory deficit Eye Opening: Spontaneous Motor: Obeys Commands Verbal: Oriented GCS Score: 15 - Psych Psych: Normal mood, Normal affect Results - Vitals Vitals: Vital Signs - 24 hr 10/26/18 13:35 Temperature 37.1 C Heart Rate 85 Respiratory 14 Rate Blood Pressure 121/69 O2 Saturation 97 Oxygen O2 Source Room air - Labs Labs: Laboratory Tests 10/26/18 15:00 PT 26.1 H INR 2.4 H PD MEDICAL DECISION MAKING - ED course Complexity details: reviewed results, re-evaluated patient, considered differential (No cauda equina, no spinal epidural abscess, no fracture, no aortic dissection or evidence of aneursym rupture), d/w patient ED course: Patient with what appears to be sciatica rating down the left leg. No evidence of cauda equina, epidural abscess or fracture. Well-appearing, no toxic. Ambulating well. Will prescribe pain medication steroids for home. Patient counseled regarding signs and symptoms for which I believe and urgent re- evaluation would be necessary. Patient with good understanding of and agreement to plan and is comfortable going home at this time This document was made in part using voice recognition software. While efforts are made to proofread this document, sound alike and grammatical errors may occur. Departure - Departure Disposition: 01 Home, Self Care Clinical Impression: Sciatica Qualifiers: Laterality: left Qualified Code(s): M54.32 - Sciatica, left side Condition: Good Instructions: ED Sciatica Follow-Up: Manuel Mcdaniel MD [Primary Care Provider] - Within 1 week Prescriptions: Cyclobenzaprine [Flexeril] 10 mg PO TID PRN #20 tablet PRN Reason: Spasms Hydrocodone/Acetaminophen [Hydrocodon-Acetaminophen 5-325] 1 - 2 each PO Q6H PRN #14 tablet PRN Reason: pain predniSONE [Deltasone] 10 mg PO [id number] #42 tab Comments: Return if you worsen. This should improve over the next week. Return especially for worsening pain or fevers. Do not drink alcohol or drive while on narcotic pain medicine. Note that many narcotic pain relievers also contain tylenol/acetaminophen. Please ensure that your total dose of acetaminophen from all sources does not exceed 3 grams (3000mg) per day. You may constipated on this medication, take a stool softener such as "Colace" twice a day while you are on it. Also recommend a [id number] laxative such as senna or MiraLAX any day that you do not have a bowel movement. If you received narcotic pain medication in the emergency department, do not drive or operate machinery for the next 24 hours. Discharge Date/Time: 10/26/18 15:07
[2018-10-26 15:29] LABS: INR 2.4 (0.8-1.2); PT - PROTHROMBIN TIME 26.1 secs (9.9-12.6)
== END 2018-10-26 15:07 | disposition home or self-care (01) ==
LOC: ED 13:16
DX: M54.32 Sciatica, left side (principal)
CPT/HCPCS: 36415; 85610; 96372; 99283

== ENCOUNTER 2019-08-01 13:53 | Outpatient (CLI) | payer MEDICARE | END 2019-08-01 13:54 | disposition home or self-care (01) | LOC: COV 13:53 | PROVIDERS: ATTEND Family Medicine | DX: R05 Cough (principal); R50.9 Fever, unspecified | CPT/HCPCS: 81599 ==

== ENCOUNTER 2019-09-29 16:04 | Outpatient (CLI) | payer MEDICARE ==
[2019-09-29 17:00] LABS: ALBUMIN 3.9 g/dL (3.2-5.5); ALKALINE PHOSPHATASE 107 IU/L (42-121); ALT ALANINE AMINOTRANSFERASE 33 IU/L (10-60); AST ASPARTATE AMINOTRANSFERASE 30 IU/L (10-42); BILIRUBIN,DIRECT < 0.1 mg/dL (0.1-0.5); BILIRUBIN,TOTAL 0.8 mg/dL (0.2-1.0); TOTAL PROTEIN 7.4 g/dL (6.7-8.2)
== END 2019-09-29 16:05 | disposition home or self-care (01) ==
LOC: LAB 16:04
PROVIDERS: ATTEND Physician Assistant Medical
DX: B35.1 Tinea unguium (principal); Z79.899 Other long term (current) drug therapy
CPT/HCPCS: 36415; 80076

== ENCOUNTER 2019-11-03 11:35 | Outpatient (CLI) | payer MEDICARE ==
[2019-11-03 12:24] LABS: ALBUMIN 4.7 g/dL (3.2-5.5); BILIRUBIN,DIRECT 0.1 mg/dL (0.1-0.5); BILIRUBIN,TOTAL 0.5 mg/dL (0.2-1.0); TOTAL PROTEIN 7.8 g/dL (6.7-8.2)
== END 2019-11-03 11:36 | disposition home or self-care (01) ==
LOC: LAB 11:35
PROVIDERS: ATTEND Physician Assistant Medical
DX: B35.1 Tinea unguium (principal); Z79.899 Other long term (current) drug therapy
CPT/HCPCS: 36415; 80076

== ENCOUNTER 2019-12-19 08:01 | Outpatient (CLI) | payer MEDICARE ==
[2019-12-19 08:25] LABS: ALBUMIN 4.1 g/dL (3.2-5.5); ALKALINE PHOSPHATASE 110 IU/L (42-121); ALT ALANINE AMINOTRANSFERASE 31 IU/L (10-60); AST ASPARTATE AMINOTRANSFERASE 25 IU/L (10-42); BILIRUBIN,TOTAL 0.7 mg/dL (0.2-1.0); TOTAL PROTEIN 7.3 g/dL (6.7-8.2)
[2019-12-19 08:31] LABS: BILIRUBIN,DIRECT < 0.1 mg/dL (0.1-0.5)
== END 2019-12-19 08:02 | disposition home or self-care (01) ==
LOC: LAB 08:01
PROVIDERS: ATTEND Physician Assistant Medical
DX: B35.1 Tinea unguium (principal); Z79.899 Other long term (current) drug therapy
CPT/HCPCS: 36415; 80076

== ENCOUNTER 2020-01-13 12:23 | Outpatient (CLI) | payer MEDICARE ==
[2020-01-13 13:05] LABS: ALBUMIN 4.2 g/dL (3.2-5.5); BILIRUBIN,DIRECT 0.1 mg/dL (0.1-0.5); BILIRUBIN,TOTAL 0.6 mg/dL (0.2-1.0); TOTAL PROTEIN 7.4 g/dL (6.7-8.2)
== END 2020-01-13 12:24 | disposition home or self-care (01) ==
LOC: LAB 12:23
PROVIDERS: ATTEND Physician Assistant Medical
DX: B35.1 Tinea unguium (principal); Z79.899 Other long term (current) drug therapy
CPT/HCPCS: 36415; 80076

== ENCOUNTER 2020-01-21 14:35 | Outpatient (CLI) | payer MEDICARE ==
--- NOTE | 2020-01-23 09:47 | MRI Report ---
PROCEDURE: Knee RT W/O INDICATIONS: INTERNAL DERANGEMENT OF RT KNEE,EFFUSION OF RT KNE TECHNIQUE: Noncontrast sagittal PD fast spin echo and T2 fast spin echo with fat saturation, sagittal 3-D gradie nt sequence with fat saturation; coronal T1 spin echo and PD fast spin echo with fat saturation, and axial PD fast spin echo with fat saturation through the knee. COMPARISON: None. FINDINGS: Image quality: Excellent. Menisci: Medial extrusion of the medial meniscus is present. There is amorphous and linear high signa l intensity within the medial meniscal body and posterior horn, demonstrating superior and inferior a rticular surface extension, indicating multifocal complex tearing. Linear horizontally oriented high signal intensity within the anterior horn medial meniscus is present, demonstrating inferior articula r surface extension, indicating horizontal tearing. There is linear horizontally oriented high signal intensity traversing the anterior horn, body, and posterior horn lateral meniscus, demonstrating inf erior articular surface extension, indicating horizontal tearing. Cruciate ligaments: The anterior and posterior cruciate ligaments appear intact. Medial structures: The medial collateral ligament appears intact. Visualized portions of the pes an serinus tendons appear normal. No abnormal bursal fluid. Lateral structures: The lateral collateral ligament, long and short heads of the biceps femoris tend on appear intact. The popliteus tendon appears normal. Iliotibial band appears normal. Anterior structures: The quadriceps and patellar tendons appear intact. Patellar alignment is daniel l. No femoral trochlear dysplasia or ventral trochlear prominence. No edema in the infrapatellar fa t pad. Bones and cartilage: No bone marrow contusions or fractures. There is moderate subchondral degenerat louis marrow edema within the anterior weightbearing aspect of the medial femoral condyle as well as th e anterior and posterior weightbearing aspects of the medial tibial plateau. Mild degenerative marrow edema within the patellar apex as well as the medial and lateral patellar facets. Severe articular c artilage loss diffusely overlies the weightbearing aspects of the medial femoral condyle and medial t ibial plateau. Mild articular cartilage loss diffusely overlies the weightbearing aspects of the late ral femoral condyle and lateral tibial plateau. Severe articular cartilage loss overlies the lateral patellar facet inferiorly. Mild articular cartilage fibrillation overlies the medial patellar facet. Joint space: There is a moderate knee joint effusion and a trace Bernal?s cyst. Normal appearing syn ovial plicae are incidentally noted. IMPRESSION: 1. Tricompartmental osteoarthritis with associated articular cartilage loss. 2. Medial and lateral meniscal tearing. 3. Knee joint effusion and trace Ebrnal's cyst. Reviewed by: Barry Allen MD on 01/23/2020 9:46 AM PDT Approved by: Barry Allen MD on 01/23/2020 9:46 AM PDT Station ID: [id number]
== END 2020-01-21 14:36 | disposition home or self-care (01) ==
LOC: DI 14:35
PROVIDERS: ATTEND Student in an Organized Health Care Education/Training Program
DX: M17.11 Unilateral primary osteoarthritis, right knee (principal); S83.281A Other tear of lateral meniscus, current injury, right knee, initial encounter; S83.241A Other tear of medial meniscus, current injury, right knee, initial encounter; M71.21 Synovial cyst of popliteal space [Baker], right knee; M25.461 Effusion, right knee

== ENCOUNTER 2020-02-27 08:19 | Day surgery (SDC) | payer MEDICARE ==
[2020-02-27] MEDS ORDERED: fentaNYL 250 MCG/5 ML VIAL IVP ONE (08:20)
[2020-02-27] MEDS ORDERED: MIDAZOLAM 2 MG/2 ML VIAL IVP ONE (08:20)
[2020-02-27] MEDS ORDERED: LACTATED RINGERS 1,000 ML IV ONE ×2 (08:28→10:08)
[2020-02-27 10:25] VITALS: BP 111/70
== END 2020-02-27 08:20 | disposition home or self-care (01) ==
LOC: SDS 08:19
PROVIDERS: ATTEND Internal Medicine Gastroenterology
PROC: 0DBP8ZZ Excision of Rectum, Via Natural or Artificial Opening Endoscopic (ICD-10-PCS; 2020-02-27)
PROC: 0DBM8ZZ Excision of Descending Colon, Via Natural or Artificial Opening Endoscopic (ICD-10-PCS; principal; 2020-02-27 09:30)
DX: Z12.11 Encounter for screening for malignant neoplasm of colon (principal); D12.8 Benign neoplasm of rectum; D12.4 Benign neoplasm of descending colon; E66.9 Obesity, unspecified; Z68.30 Body mass index [BMI] 30.0-30.9, adult; Z87.891 Personal history of nicotine dependence; Z79.01 Long term (current) use of anticoagulants; Z86.718 Personal history of other venous thrombosis and embolism
CPT/HCPCS: 45380; 45385; 85610; J3010; J7120

== ENCOUNTER 2020-11-01 11:13 | Outpatient (CLI) | payer MEDICARE ==
[2020-11-01 11:34] LABS: BASOPHILS % (AUTO) 0.4 %; EOSINOPHILS # (AUTO) 0.1 10^3/uL (0.0-0.7); EOSINOPHILS % (AUTO) 1.4 %; HCT - HEMATOCRIT 43.4 % (42.0-52.0); HGB - HEMOGLOBIN 14.8 g/dL (14.0-18.0); LYMPHOCYTES # (AUTO) 1.5 10^3/uL (1.5-3.5); LYMPHOCYTES % (AUTO) 30.8 %; MEAN CORPUSCULAR HEMOGLOBIN 30.8 pg (27.0-31.0); MEAN CORPUSCULAR HGB CONC 34.1 g/dL (32.0-36.0); MEAN CORPUSCULAR VOLUME 90.2 fL (80.0-94.0); MONOCYTES # (AUTO) 0.3 10^3/uL (0.0-1.0); MONOCYTES % (AUTO) 5.5 %; NEUTROPHILS % (AUTO) 61.5 %; PLT - PLATELET COUNT 151 10^3/uL (130-450); RED BLOOD COUNT 4.81 10^6/uL (4.70-6.10); RED CELL DISTRIBUTION WIDTH 13.7 % (12.0-15.0); WHITE BLOOD COUNT 4.9 x10^3/uL (4.8-10.8)
[2020-11-01 11:51] LABS: ALBUMIN 4.4 g/dL (3.2-5.5); ALBUMIN/GLOBULIN RATIO 1.5 (1.0-2.2); ALKALINE PHOSPHATASE 93 IU/L (42-121); ALT ALANINE AMINOTRANSFERASE 36 IU/L (10-60); AST ASPARTATE AMINOTRANSFERASE 22 IU/L (10-42); BILIRUBIN,TOTAL 0.9 mg/dL (0.2-1.0); BUN - BLOOD UREA NITROGEN 14 mg/dL (6-20); CALCIUM 9.3 mg/dL (8.5-10.3); CARBON DIOXIDE - CO2 26 mmol/L (21-32); CHLORIDE 103 mmol/L (101-111); CHOL/HDL RATIO 4.7 (<5.0); CHOLESTEROL 173 mg/dL; CREATININE 0.8 mg/dL (0.6-1.2); GFR - MDRD 95 (>89); GLUCOSE 101 mg/dL (70-100); HDL CHOLESTEROL 37 mg/dL; LDL CHOLESTEROL,CALCULATED 95 mg/dL; LDL/HDL RATIO 2.6 (<3.6); POTASSIUM 3.7 mmol/L (3.5-5.0); SODIUM 140 mmol/L (135-145); TOTAL PROTEIN 7.4 g/dL (6.7-8.2); TRIGLYCERIDES 205 mg/dL; VLDL CHOLESTEROL 41 mg/dL
== END 2020-11-01 11:14 | disposition home or self-care (01) ==
LOC: LAB 11:13
PROVIDERS: ATTEND Family Medicine Adult Medicine
DX: E78.5 Hyperlipidemia, unspecified (principal)
CPT/HCPCS: 36415; 80053; 80061; 81599; 82172; 83721; 85025

== ENCOUNTER 2021-06-27 14:45 | Outpatient (CLI) | payer MEDICARE ==
[2021-06-27 15:13] LABS: INR 2.8 (0.8-1.2); PT - PROTHROMBIN TIME 31.4 secs (9.9-12.6)
== END 2021-06-27 14:46 | disposition home or self-care (01) ==
LOC: LAB 14:45
PROVIDERS: ATTEND Surgery
DX: D68.51 Activated protein C resistance (principal)
CPT/HCPCS: 36415; 85610

== ENCOUNTER 2021-06-28 09:30 | Day surgery (SDC) | payer MEDICARE ==
[2021-06-28] MEDS ORDERED: PROPOFOL 500 MG/50 ML 500 MG/50 ML VIAL ONE (09:45)
[2021-06-28] MEDS ORDERED: MIDAZOLAM 2 MG/2 ML VIAL ONE (09:46)
[2021-06-28] MEDS ORDERED: fentaNYL 100 MCG/2 ML VIAL ONE (09:46)
[2021-06-28] MEDS ORDERED: LACTATED RINGERS 1,000 ML IV ONE ×2 (09:53→10:54)
--- NOTE | 2021-06-28 10:16 | ANESTHESIA ---
Pre-Anesthesia VS, & Labs - Diagnosis hx of rectal polyps - Procedure sigmoidoscopy Vital Signs: Temp Pulse Resp BP Pulse Ox 36.8 C 79 10 L 108/89 H 96 06/28/21 09:47 06/28/21 09:47 06/28/21 09:47 06/28/21 09:47 06/28/21 09:47 Height: 5 ft 5 in Weight (kg): 96 kg Body Mass Index: 35.2 BMI Classification: Obese - NPO >8 hours Home Medications and Allergies Citalopram [CeleXA] 10 mg PO DAILY 10/30/14 hydroCHLOROthiazide [Hydrochlorothiazide] 25 mg PO DAILY 08/08/15 Tamsulosin HCl [Flomax] 0.4 mg PO DAILY 12/21/16 Atorvastatin [Lipitor] 40 mg ORAL DAILY 02/04/17 Levothyroxine [Synthroid] 1 tab ORAL DAILY 02/04/17 Warfarin Sodium 7.5 mg PO DAILY 03/11/18 Acetaminophen [Tylenol] 500 mg PO Q6H PRN 02/23/20 Cholecalciferol [Vitamin D3] 3,000 units PO DAILY 02/23/20 Multivitamin [Multiple Vitamins] 1 tab PO DAILY 02/23/20 Triamcinolone 0.1% Cream [Kenalog 0.1% Cream] 1 applic TOP BID 02/23/20 Warfarin Sodium 8 mg PO DAILY 02/23/20 Allergies/Adverse Reactions: Allergies Allergy/AdvReac Type Severity Reaction Status Date / Time morphine AdvReac Nausea Verified 02/29/20 10:46 Anes History & Medical History - Anesthetic History Anesthesia Complications: reports: No previous complications Family history of Anesthesia Complications: Denies Family history of Malignant Hyperthermia: Denies - Medical History Cardiovascular: reports: Hypertension, High cholesterol Pulmonary: reports: None Gastrointestinal: reports: Colon polyps Urinary: reports: Kidney stones Neuro: reports: None Musculoskeletal: reports: Osteoarthritis Endocrine/Autoimmune: reports: HyPOthyroidism Blood Disorders: reports: None Skin: reports: None Smoking Status: Never smoker - Surgical History General: reports: Other Urologic: reports: Ureterolithotomy (stones) Orthopedic: reports: Knee replacement, Other Exam General: Alert, Oriented x3, Cooperative Dental: WNL Mouth Openin Fingerbreadth Neck Mobility: Normal Mallampati classification: II Thyromental Distance: 4-6 cm Respiratory: Lungs clear Plan Anesthesia Type: Total IV Consent for Procedure(s) Verified and Reviewed: Yes Code Status: Attempt Resuscitation ASA classification: 3-Severe systemic disease Is this case an emergency?: No
[2021-06-28 11:34] VITALS: BP 105/67
--- NOTE | 2021-06-28 13:26 | ANESTHESIA POST OP EVALUATION ---
Anesthesia Post Eval - Post Anesthesia Eval Vitals: Last Vital Signs Temp 36.5 C 06/28/21 11:33 Pulse 69 06/28/21 11:33 Resp 16 06/28/21 11:33 BP 105/67 06/28/21 11:33 Pulse Ox 97 06/28/21 11:33 CV Function Including HR & BP: Stable Pain Control: Satisfactory Nausea & Vomiting: Negative Mental Status: Baseline Respiratory Status: Airway Patent Hydration Status: Satisfactory Anesthesia Complications: None
== END 2021-06-28 09:31 | disposition home or self-care (01) ==
LOC: SDS 09:30
PROVIDERS: ATTEND Surgery
PROC: 0DBN8ZZ Excision of Sigmoid Colon, Via Natural or Artificial Opening Endoscopic (ICD-10-PCS; principal; 2021-06-28 10:30)
DX: Z12.11 Encounter for screening for malignant neoplasm of colon (principal); K63.5 Polyp of colon; K57.30 Diverticulosis of large intestine without perforation or abscess without bleeding; F41.9 Anxiety disorder, unspecified; E66.9 Obesity, unspecified; Z68.35 Body mass index [BMI] 35.0-35.9, adult; Z79.01 Long term (current) use of anticoagulants; Z87.891 Personal history of nicotine dependence
CPT/HCPCS: 45385; J7120